=== PATIENT | female | born 2005 ===

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

== ENCOUNTER 2023-06-06 07:27 | Inpatient (IN) | payer MEDICAID ==
[2023-06-06] VITALS (42 sets, daily range): BP systolic 119–169; BP diastolic 66–102
[~2023-06-06] VITALS: Ht 160.3 cm; Wt 79.9 kg
[2023-06-06 08:39] LABS: BACTERIA,URINE MODERATE /HPF; BILIRUBIN,URINE NEGATIVE (NEGATIVE); CLARITY,URINE SL CLOUDY; COLOR,URINE YELLOW; GLUCOSE, URINE (UA) NEGATIVE (NEGATIVE); KETONES,URINE TRACE (NEGATIVE); LEUKOCYTE ESTERASE ,URINE 2+ (NEGATIVE); NITRITE,URINE NEGATIVE (NEGATIVE); PH,URINE 6.5 (5-9); PROTEIN,URINE 2+ (NEGATIVE); WBC,URINE 25-50 /HPF
[2023-06-06 08:40] LABS: AMORPHOUS SEDIMENT,UR MOD AMOR URATES /LPF
[2023-06-06] MEDS ORDERED: D5 LR 1,000 ML IV SOLN 1,000 ML IV SCH (09:15)
[2023-06-06] MEDS ORDERED: NS (IVPB) 50 ML 50 ML ONE (09:57)
[2023-06-06] MEDS ORDERED: ceFAZolin INJECTION 1,000 MG ONE (09:58)
[2023-06-06] MEDS: ceFAZolin INJECTION 1,000 MG in NS (IVPB) 50 ML 50 ML IV SCH ×2 (10:04→18:07)
[2023-06-06 10:24] LABS: BASOPHILS % (AUTO) 0 % (0-10); EOSINOPHILS # (AUTO) 0.1 10^3/uL (0.0-0.3); EOSINOPHILS % (AUTO) 2 % (0-10); HEMATOCRIT 34 % (35-52); HEMOGLOBIN 11.3 g/dL (11.5-16.0); LYMPHOCYTES # (AUTO) 2.9 10^3/uL (1.0-4.0); LYMPHOCYTES % (AUTO) 35 % (12-44); MEAN CORPUSCULAR HEMOGLOBIN 31 pg (25-34); MEAN CORPUSCULAR HGB CONC 34 g/dL (32-36); MEAN CORPUSCULAR VOLUME 93 fL (80-99); MEAN PLATELET VOLUME 11.4 fL (9.0-12.2); MONOCYTES # (AUTO) 0.8 10^3/uL (0.0-1.0); MONOCYTES % (AUTO) 9 % (0-12); NEUTROPHILS # (AUTO) 4.4 10^3/uL (1.8-7.8); NEUTROPHILS % (AUTO) 53 % (42-75); PLATELET COUNT 216 10^3/uL (130-400); WHITE BLOOD COUNT 8.3 10^3/uL (4.3-11.0)
[2023-06-06 10:41] LABS: ALBUMIN 3.4 GM/DL (3.2-4.5); BILIRUBIN,TOTAL 0.3 MG/DL (0.1-1.0); CALCIUM 9.4 MG/DL (8.5-10.1); CREATININE SERUM 0.72 MG/DL (0.60-1.30); POTASSIUM 3.8 MMOL/L (3.6-5.0); TOTAL PROTEIN 6.6 GM/DL (6.4-8.2); URIC ACID 4.2 MG/DL (2.6-7.2)
[2023-06-06] MEDS ORDERED: LACTATED RINGERS 1,000 ML 500 ML IV PRN (11:15)
[2023-06-06] MEDS ORDERED: MINERAL OIL 30 ML UDC TOP PRN (11:15)
[2023-06-06] MEDS ORDERED: LIDOCAINE 2% w/EPI 1:200,000 20 ML VIAL ONE (12:13)
[2023-06-06] MEDS ORDERED: OXYTOCIN DRIP PRE-MIX 500 ML IV ONE ×2 (12:13→23:39)
[2023-06-06] MEDS ORDERED: CATHETER FLUSH 10 ML SYR IV SCH (14:00)
[2023-06-06] MEDS: D5 LR 1,000 ML IV SOLN 1,000 ML IV SCH ×2 (14:22→20:29)
--- NOTE | 2023-06-06 15:32 | History & Physical-OB ---
OB - Chief Complaint & HPI Date/Time Date of Admission: Date of Admission: Jun 06, 2023 at 11:08 Date seen by a Provider: Jun 06, 2023 Time Seen by a Provider: 15:30 Chief Complaint/History OB-Reason for Admission/Chief: Onset of Labor Hx : 1 Hx Para: 0 Expected Date of Delivery: Jun 18, 2023 Gestational Age in Weeks: 38 Gestational Age in Days: 2 Admission Nurse Assessment Rev: Yes History of Labs GBS negative Allergies and Home Medications Allergies Coded Allergies: No Known Drug Allergies (Verified , 12/20/08) Patient Home Medication List Home Medication List Reviewed: Yes Azithromycin (Zithromax) 250 Mg Tablet, 1 TAB PO UD Prescribed by: JASE BATEMAN on 07/06/14 1354 Cephalexin (Cephalexin) 250 Mg Capsule, 250 MG PO TID Prescribed by: VERENA LOCKWOOD on 06/08/23 0743 Ferrous Sulfate (Ferrous Sulfate) 325 Mg (65 Mg Iron) Tablet, 325 MG PO DAILY Prescribed by: VERENA LOCKWOOD on 06/08/23 0743 OB - History Hx of Present Care: Yes Ultrasounds: Normal mid trimester US Obstetrical Complications: None Medical Complications: None Obstetrical History Hx : 1 Hx Para: 0 Delivery History Hx Blood Disorders: No Patient Past Medical History no chonic medical problems Social History/Family History Alcohol Use: Denies Use Recreational Drug Use: No 2nd Hand Smoke Exposure: No Immunizations Influenza Vaccine Up-to-Date: No; Not Current Hepatitis A: No Hepatitis B: No Tetanus Booster (TDap): Unknown OB - Admission Exam Physical Exam Vitals: Vital Signs 06/06/23 06/06/23 10:25 15:20 Temp 36.8 Pulse 77 Resp 20 B/P (MAP) 128/71 (90) Pulse Ox 99 O2 Delivery Room Air HEENT: Eyes non-injected Heart: Rhythm Normal Lungs: Clear Abdomen: Gravid Cervical Dilatation: 1cm (on presentation) Labs Laboratory Tests Test 06/06/23 07:55 06/06/23 09:15 Range/Units Urine Color YELLOW Urine Clarity SL CLOUDY Urine pH 6.5 5-9 Urine Specific [place] 1.020 1.016-1.022 Urine Protein 47 H 6-12 MG/DL Urine Glucose (UA) NEGATIVE NEGATIVE Urine Ketones TRACE H NEGATIVE Urine Nitrite NEGATIVE NEGATIVE Urine Bilirubin NEGATIVE NEGATIVE Urine Urobilinogen 2.0 < = 1.0 MG/DL Urine Leukocyte Esterase 2+ H NEGATIVE Urine RBC (Auto) 1+ H NEGATIVE Urine RBC 2-5 H /HPF Urine WBC 25-50 H /HPF Urine Squamous Epithelial Cells 5-10 /HPF Urine Crystals PRESENT H /LPF Urine Amorphous Sediment MOD BRANDO URATES H /LPF Urine Bacteria MODERATE H /HPF Urine Casts NONE /LPF Urine Mucus SMALL H /LPF Urine Culture Indicated YES Urine Creatinine 155 H 30-125 MG/DL Urine Protein/Creatinine Ratio 0.30 White Blood Count 8.3 4.3-11.0 10^3/uL Red Blood Count 3.61 L 3.80-5.11 10^6/uL Hemoglobin 11.3 L 11.5-16.0 g/dL Hematocrit 34 L 35-52 % Mean Corpuscular Volume 93 80-99 fL Mean Corpuscular Hemoglobin 31 25-34 pg Mean Corpuscular Hemoglobin Concent 34 32-36 g/dL Red Cell Distribution Width 12.4 10.0-14.5 % Platelet Count 216 130-400 10^3/uL Mean Platelet Volume 11.4 9.0-12.2 fL Immature Granulocyte % (Auto) 1 % Neutrophils (%) (Auto) 53 42-75 % Lymphocytes (%) (Auto) 35 12-44 % Monocytes (%) (Auto) 9 0-12 % Eosinophils (%) (Auto) 2 0-10 % Basophils (%) (Auto) 0 0-10 % Neutrophils # (Auto) 4.4 1.8-7.8 10^3/uL Lymphocytes # (Auto) 2.9 1.0-4.0 10^3/uL Monocytes # (Auto) 0.8 0.0-1.0 10^3/uL Eosinophils # (Auto) 0.1 0.0-0.3 10^3/uL Basophils # (Auto) 0.0 0.0-0.1 10^3/uL Immature Granulocyte # (Auto) 0.1 0.0-0.1 10^3/uL Sodium Level 137 135-145 MMOL/L Potassium Level 3.8 3.6-5.0 MMOL/L Chloride Level 109 H 98-107 MMOL/L Carbon Dioxide Level 22 21-32 MMOL/L Anion Gap 6 5-14 MMOL/L Blood Urea Nitrogen 8 7-18 MG/DL Creatinine 0.72 0.60-1.30 MG/DL Estimat Glomerular Filtration Rate 123 BUN/Creatinine Ratio 11 Glucose Level 76 70-105 MG/DL Uric Acid 4.2 2.6-7.2 MG/DL Calcium Level 9.4 8.5-10.1 MG/DL Corrected Calcium 9.9 8.5-10.1 MG/DL Total Bilirubin 0.3 0.1-1.0 MG/DL Aspartate Amino Transf (AST/SGOT) 18 5-34 U/L Alanine Aminotransferase (ALT/SGPT) 12 0-55 U/L Alkaline Phosphatase 173 H 40-136 U/L Lactate Dehydrogenase 172 125-220 U/L Total Protein 6.6 6.4-8.2 GM/DL Albumin 3.4 3.2-4.5 GM/DL Syphilis Total Antibody Negative Negative OB - Assessment/Plan/Diagnosis Assessment Assessment: active labor Admission Dx 1. IUP at 38w2d gestation. 2. UTI Admission Status: Inpatient Order (span 2 midnights) Reason for Inpatient Admission: Labor Plan Plan: Expectant Management VERENA LOCKWOOD MD Jun 06, 2023 15:32
[2023-06-06] MEDS ORDERED: fentaNYL 2 mcg/ml BUPIVA 0.125 100 ML ONE (18:36)
[2023-06-06] MEDS ORDERED: fentaNYL INJECTION 100 MCG/2 ML VIAL ONE (18:52)
[2023-06-06] MEDS ORDERED: BUPIVACAINE 0.25% 10 ML VIAL ONE (18:52)
[2023-06-06] MEDS ORDERED: diphenhydrAMINE INJ 50 MG/ML VIAL IV PRN (19:00)
[2023-06-06] MEDS ORDERED: NALOXONE 0.4 MG/ML 1 ML VIAL IV PRN ×2 (19:00→23:30)
[2023-06-06] MEDS ORDERED: ONDANSETRON INJECTION 4 MG/2 ML (SDV) IV PRN (19:00)
[2023-06-06] MEDS ORDERED: LACTATED RINGERS 1,000 ML 1,000 ML IV SCH (19:00)
[2023-06-06] MEDS ORDERED: fentaNYL 2 mcg/ml BUPIVA 0.125 100 ML EPI SCH (19:00)
[2023-06-06] MEDS ORDERED: OXYTOCIN DRIP PRE-MIX 500 ML IV SCH ×2 (20:30→23:30)
--- NOTE | 2023-06-06 23:16 | OB Labor & Delivery Record ---
L&D History Date of Service Date of Service: Jun 06, 2023 History Expected Date of Delivery: Jun 18, 2023 Gestational Age in Weeks: 38 Hx : 1 Hx Para: 1 Complications Events: Routine care Operative Indications (Cesarea: N/A-Vaginal Delivery Intrapartal Events: None Other Complications GBS negative. UTI L&D Stage1 Stage One Onset of Labor - Date: Jun 06, 2023 Onset of Labor - Time: 09:00 Monitors and Tracing Monitor Mode: Internal Heart Rate: 125 Monitor Accelerations: Uniform Monitor Decelerations: None Station: -2 Care Home Variability: Average (6-10) Short Term Variability: Present Presentation: Vertex Vital Signs VS - Last 72 Hours, by Label 06/06/23 06/06/23 06/06/23 06/06/23 07:52 08:03 08:25 08:35 Temp 36.9 36.9 Pulse 124 126 100 109 Resp 20 20 20 20 B/P (MAP) 131/99 (110) 131/87 (102) 131/99 Pulse Ox 98 98 98 O2 Delivery Room Air Room Air Room Air Room Air 06/06/23 06/06/23 06/06/23 06/06/23 08:55 09:20 10:00 10:25 Temp 37.3 36.7 Pulse 91 90 76 74 Resp 20 20 20 20 B/P (MAP) 133/88 (103) 134/88 (103) 160/96 (117) 137/97 (110) Pulse Ox 99 99 99 O2 Delivery Room Air Room Air Room Air Room Air 06/06/23 06/06/23 06/06/23 06/06/23 11:45 11:52 12:30 13:05 Temp 36.8 Pulse 88 83 88 99 Resp 18 18 20 20 B/P (MAP) 169/102 (124) 139/96 (110) 138/78 (98) 131/84 (100) O2 Delivery Room Air Room Air Room Air Room Air 06/06/23 06/06/23 06/06/23 06/06/23 13:30 14:30 15:20 16:05 Temp 36.6 36.8 37.0 Pulse 87 82 77 106 Resp 20 18 20 20 B/P (MAP) 140/86 (104) 148/88 (108) 128/71 (90) 145/82 (103) O2 Delivery Room Air Room Air Room Air Room Air 06/06/23 06/06/23 06/06/23 06/06/23 16:45 17:15 18:00 18:30 Temp 36.8 Pulse 114 102 89 88 Resp 20 20 20 20 B/P (MAP) 132/85 (101) 137/90 (106) 134/87 (103) 142/92 (109) O2 Delivery Room Air Room Air Room Air Room Air 06/06/23 06/06/23 06/06/23 06/06/23 19:02 19:05 19:08 19:15 Pulse 98 86 86 75 Resp 20 18 18 18 B/P (MAP) 143/92 (109) 164/84 (110) 150/81 (104) 134/84 (101) Pulse Ox 99 99 99 99 O2 Delivery Room Air Room Air Room Air Room Air 06/06/23 06/06/23 06/06/23 06/06/23 19:18 19:21 19:24 19:33 Temp 37.0 Pulse 83 92 72 83 Resp 18 18 18 18 B/P (MAP) 135/82 (99) 127/74 (91) 136/78 (97) 124/80 (95) Pulse Ox 99 99 99 99 O2 Delivery Room Air Room Air Room Air Room Air 06/06/23 06/06/23 06/06/23 06/06/23 19:42 19:50 20:08 20:17 Pulse 91 93 68 77 Resp 18 18 18 18 B/P (MAP) 138/66 (90) 138/88 (105) 135/82 (99) 127/76 (93) Pulse Ox 99 99 99 100 O2 Delivery Room Air Room Air Room Air Room Air 06/06/23 06/06/23 06/06/23 06/06/23 20:29 20:38 20:48 20:57 Pulse 92 69 64 62 Resp 18 18 18 18 B/P (MAP) 127/74 (91) 124/75 (91) 130/75 (93) 125/76 (92) Pulse Ox 100 99 99 99 O2 Delivery Room Air Room Air Room Air Room Air 06/06/23 06/06/23 06/06/23 06/06/23 21:08 21:18 21:27 21:50 Temp 36.9 Pulse 60 63 55 86 Resp 18 18 18 18 B/P (MAP) 144/79 (100) 145/88 (107) 130/79 (96) 126/78 (94) Pulse Ox 99 100 100 99 O2 Delivery Room Air Room Air Room Air Room Air 06/06/23 22:06 Pulse 86 Resp 18 B/P (MAP) 156/76 (102) Pulse Ox 100 O2 Delivery Room Air Signs of Distress by FHT Signs of Distress no Rupture of Membranes Spontaneous Ruture of Membrane: No Amniotic Membrane Rupture Time: 1536 Amniotic Membrane Fluid Desc.: Clear Induction/Anesthesia Epidural Cath Placement - Time: 5 L&D Stage2 Stage Two Stage II Date: Jun 06, 2023 Stage II Time: 22:42 Monitors and Tracing Monitor Mode: Internal Heart Rate: 125 Monitor Accelerations: Uniform Monitor Decelerations: None Care Home Variability: Average (6-10) Short Term Variability: Present Position: Left Occiput Anterior Presentation: Vertex Signs of Distress by FHT Signs of Distress no Cord Descript/Complications Cord Vessel Description: 3 Vessels Delivery Type Delivery Method: Spontaneous Vaginal Anterior Shoulder: Left Episiotomy/Perineal Laceration Laceraction(s)/Extensions: No Episiotomy Description: Periurethral Extnsion/lac (R), 1st degree (very minor) Sutures Used: Vicryl Condition of Delivery 1 minute Comment: 8 5 minute Comment: 9 Condition of Condition of : Living Exam: No Observed Abnormalities Resuscitation Resuscitation: N/A - Spontaneous Resp L&D Stage3 Stage Three Stage III Date: Jun 06, 2023 Stage III Time: 22:46 Pictocin Pitocin Administration mu/min: 6 Pitocin ml/hr: 6 Placenta Delivery Placenta Delivery: Spontaneous Delivery Summary Summary Estimated blood loss (mL): 350 Condition of Delivery Examined: Cervix Examined Post Hemorrhage: No Intervention Required uterine massage VERENA LOCKWOOD MD Jun 06, 2023 23:15
[2023-06-06] MEDS ORDERED: MEASLES, MUMPS, RUBELLA VACCINE (MMR) SQ ONE (23:30)
[2023-06-06] MEDS ORDERED: Tetanus/Diphtheria/Pertussis (Acell) ADULT Vaccine 0.5 ML IM ONE (23:30)
[2023-06-06] MEDS ORDERED: WITCH HAZEL(TUCKS) 40 EA JAR TOP PRN (23:30)
[2023-06-06] MEDS ORDERED: BENZOCAINE/MENTHOL (DERMOPLAST) 56 ML CAN TP PRN (23:30)
[2023-06-07] VITALS (7 sets, daily range): BP systolic 122–148; BP diastolic 63–93
[2023-06-07] MEDS: IBUPROFEN 600 MG TABLET PO SCH ×4 (00:09→17:50)
[2023-06-07] MEDS: ACETAMINOPHEN 500 MG TABLET PO SCH ×4 (00:09→17:50)
[2023-06-07 05:38] LABS: BASOPHILS % (AUTO) 0 % (0-10); EOSINOPHILS # (AUTO) 0.1 10^3/uL (0.0-0.3); EOSINOPHILS % (AUTO) 1 % (0-10); HEMATOCRIT 24 % (35-52); HEMOGLOBIN 7.9 g/dL (11.5-16.0); LYMPHOCYTES # (AUTO) 2.2 10^3/uL (1.0-4.0); LYMPHOCYTES % (AUTO) 20 % (12-44); MEAN CORPUSCULAR HEMOGLOBIN 31 pg (25-34); MEAN CORPUSCULAR HGB CONC 33 g/dL (32-36); MEAN CORPUSCULAR VOLUME 93 fL (80-99); MEAN PLATELET VOLUME 11.1 fL (9.0-12.2); MONOCYTES # (AUTO) 1.4 10^3/uL (0.0-1.0); MONOCYTES % (AUTO) 12 % (0-12); NEUTROPHILS # (AUTO) 7.5 10^3/uL (1.8-7.8); NEUTROPHILS % (AUTO) 67 % (42-75); PLATELET COUNT 153 10^3/uL (130-400); WHITE BLOOD COUNT 11.3 10^3/uL (4.3-11.0)
[2023-06-07] MEDS: CATHETER FLUSH 10 ML SYR IV SCH ×3 (06:18→21:18)
--- NOTE | 2023-06-07 07:32 | Progress Note ---
Subjective Subjective/Events-last exam mother voices no complaints today no dizziness. She has had urine output already since giving Objective Exam Last Set of Vital Signs Vital Signs Date Time Temp Pulse Resp B/P (MAP) Pulse Ox O2 Delivery O2 Flow Rate FiO2 06/07/23 05:31 36.8 101 18 126/80 (95) 99 Room Air Capillary Refill : Less Than 3 Seconds I&O Intake and Output 06/07/23 00:00 Intake Total 2100 ml Balance 2100 ml IV Total 2100 ml Blood Loss Quantification Method 350 ml Daily Weight Change No General: Alert, Oriented X3 Lungs: Clear to Auscultation Abdomen: Soft (With uterus firm) Results/Procedures Lab Laboratory Tests 06/06/23 07:55: Urine Color YELLOW, Urine Clarity SL CLOUDY, Urine pH 6.5, Urine Specific [place] 1.020, Urine Protein 47H, Urine Glucose (UA) NEGATIVE, Urine Ketones TRACEH, Urine Nitrite NEGATIVE, Urine Bilirubin NEGATIVE, Urine Urobilinogen 2.0, Urine Leukocyte Esterase 2+H, Urine RBC (Auto) 1+H, Urine RBC 2-5H, Urine WBC 25-50H, Urine Squamous Epithelial Cells 5-10, Urine Crystals PRESENTH, Urine Amorphous Sediment MOD BRANDO URATESH, Urine Bacteria MODERATEH, Urine Casts NONE, Urine Mucus SMALLH, Urine Culture Indicated YES, Urine Creatinine 155H, Urine Protein/Creatinine Ratio 0.30 06/06/23 09:15: White Blood Count 8.3, Red Blood Count 3.61L, Hemoglobin 11.3L, Hematocrit 34L, Mean Corpuscular Volume 93, Mean Corpuscular Hemoglobin 31, Mean Corpuscular Hemoglobin Concent 34, Red Cell Distribution Width 12.4, Platelet Count 216, Mean Platelet Volume 11.4, Immature Granulocyte % (Auto) 1, Neutrophils (%) (Auto) 53, Lymphocytes (%) (Auto) 35, Monocytes (%) (Auto) 9, Eosinophils (%) (Auto) 2, Basophils (%) (Auto) 0, Neutrophils # (Auto) 4.4, Lymphocytes # (Auto) 2.9, Monocytes # (Auto) 0.8, Eosinophils # (Auto) 0.1, Basophils # (Auto) 0.0, Immature Granulocyte # (Auto) 0.1, Sodium Level 137, Potassium Level 3.8, Chloride Level 109H, Carbon Dioxide Level 22, Anion Gap 6, Blood Urea Nitrogen 8, Creatinine 0.72, Estimat Glomerular Filtration Rate 123, BUN/Creatinine Ratio 11, Glucose Level 76, Uric Acid 4.2, Calcium Level 9.4, Corrected Calcium 9.9, Total Bilirubin 0.3, Aspartate Amino Transf (AST/SGOT) 18, Alanine Aminotransferase (ALT/SGPT) 12, Alkaline Phosphatase 173H, Lactate Dehydrogenase 172, Total Protein 6.6, Albumin 3.4, Syphilis Total Antibody Negative 06/07/23 05:26: White Blood Count 11.3H, Red Blood Count 2.57L, Hemoglobin 7.9#L, Hematocrit 24L , Mean Corpuscular Volume 93, Mean Corpuscular Hemoglobin 31, Mean Corpuscular Hemoglobin Concent 33, Red Cell Distribution Width 12.4, Platelet Count 153, Mean Platelet Volume 11.1, Immature Granulocyte % (Auto) 0, Neutrophils (%) (Auto) 67, Lymphocytes (%) (Auto) 20, Monocytes (%) (Auto) 12, Eosinophils (%) (Auto) 1, Basophils (%) (Auto) 0, Neutrophils # (Auto) 7.5, Lymphocytes # (Auto) 2.2, Monocytes # (Auto) 1.4H, Eosinophils # (Auto) 0.1, Basophils # (Auto) 0.0, Immature Granulocyte # (Auto) 0.0 Assessment/Plan Assessment/Plan Admission Dx 1. Intrauterine at term 38 weeks 2 days gestation 2. UTI Admission Status: Inpatient Order (span 2 midnights) Reason for Inpatient Admission: Labor and delivery Assessment & Plan 1. Intrauterine at term 38 weeks 2 days gestation -status post spontaneous vaginal delivery -Routine care -Home in the morning of June 08, 2023 2. UTI -currently on cephalexin 250 mg 3 times a day 3. anemiaStable -Patient is not actively bleeding currently. VERENA LOCKWOOD MD Jun 07, 2023 07:32
[2023-06-07] MEDS: CEPHALEXIN 250 MG CAPSULE PO SCH ×3 (08:54→20:52)
[2023-06-07] MEDS: DOCUSATE SODIUM 100 MG CAPSULE PO SCH ×2 (08:54→20:52)
--- NOTE | 2023-06-07 11:05 | Anesthesia-Regional Post-Op ---
Regional Patient Condition Mental Status: Alert, Oriented x3 Circulation: Same as Pre-Op Headache: Absent Sensation: Full Recovery Motor Block: Absent Post Op Complications Complications None Follow Up Care/Instructions Patient Instructions None needed. Anesthesia/Patient Condition Patient is doing well, no complaints, stable vital signs, no apparent adverse anesthesia problems. No complications reported per nursing. SAMREEN FERNANDEZ CRNA Jun 07, 2023 11:05
[2023-06-08] MEDS: IBUPROFEN 600 MG TABLET PO SCH ×2 (00:03→05:41)
[2023-06-08] MEDS: ACETAMINOPHEN 500 MG TABLET PO SCH ×2 (00:04→05:41)
[2023-06-08 02:00] VITALS: BP 137/75
[2023-06-08] MEDS: CATHETER FLUSH 10 ML SYR IV SCH (05:16)
[2023-06-08] MEDS ORDERED: FERR325T18 PO (07:43)
[2023-06-08] MEDS ORDERED: CEPH250C PO (07:43)
--- NOTE | 2023-06-08 07:45 | Discharge Inst-Women's Service ---
Discharge Inst-Women's Serv Depart Medication/Instructions New, Converted or Re-Newed RX: Transmitted to Pharmacy ([facility] on [address]) Instructions May take [id number] ibuprofen 2 or 3 tablets every 6 hours if needed for cramps Problems Reviewed?: Yes Consults/Follow Up Additional Follow Up: Yes (Dr. Lockwood in 6 weeks at [facility]) Activity Activity: Activity as Tolerated Driving Instructions: No Driving for 1 Week Nothing Inside Vagina: No Stark (For 6 weeks) Diet Discharge Diet: Regular Diet Return to The Hospital For: As below Symptoms to Report to : Swelling Increased, Bleeding Excessive, Fever Over 101 Degrees F, Vaginal Discharge Foul For Any Problems or Questions: Contact Your Physician VERENA LOCKWOOD MD Jun 08, 2023 07:45
--- NOTE | 2023-06-08 07:50 | Discharge Summary ---
Diagnosis/Chief Complaint Date of Admission Jun 06, 2023 at 11:08 Date of Discharge June 08, 2023 Admission Diagnosis Admission Diagnosis 1. Intrauterine at 38 weeks 2. Urinary tract infection Discharge Diagnosis 1. Intrauterine at 38 weeks 2. Urinary tract infection 3. Anemia following deliveryacute blood loss but now stable Chief Complaint/HPI Chief Complaint/HPI 17-year-old 1 now term 1 L1 who initially presented to labor and delivery during the late afternoon of June 06, 2023 with lower abdominal discomfort. She was ultimately found to be in labor as evident by cervical c hange and contractions. Her urine however did show significant bacteria evident for UTI. Her membranes were intact upon presentation and her group B strep status was negative. Discharge Summary-OBS Procedures 1. Epidural per anesthesia 2. Spontaneous vaginal delivery 3. Repair of minor perineal laceration as well as right-sided periurethral t ear Discharge Physical Examination Allergies: Coded Allergies: No Known Drug Allergies (Verified , 12/20/08) Vitals & I&Os Vital Sign - Last 12Hours Date Time Temp Pulse Resp B/P (MAP) Pulse Ox O2 Delivery O2 Flow Rate FiO2 06/08/23 02:00 36.6 71 16 137/75 (95) 97 Room Air General Appearance: No Acute Distress Respiratory: Clear to Auscultation Cardiovascular: Regular Rate Abdominal: Soft (With uterus firm) Neuro: Normal Speech Psych/Mental Status: Mental Status NL Hospital Course Was the Problem List Reviewed?: Yes following delivery she underwent labor course on June 06, 2023. Ultimately she received epidural and tolerated the remainder of labor well. She delivered during the evening of June 06 a term viable female. Delivery was accomplished over a midline episiotomy with a minor perineal laceration and right-sided periurethral tear. See labor and delivery note for full details. Following delivery she underwent routine care orders. She was noted to have a hemoglobin in the morning of June 07 of 7.9 and this was compared to admission of 11.3. She was without any dizziness and she was ambulatory with out complications. She denied any additional vaginal bleeding. She was started on iron sulfate daily. She was eager for dismissal in the morning of June 08, 2023. She was tolerating regular diet and had no complaints. She will follow up with myself in 6 weeks at [facility]. Labs Microbiology 06/06/23 Urine Culture - Preliminary, Resulted Slight Growth Present Discharge Instructions to patient/family Please see electronic discharge instructions given to patient. Discharge Medications Reviewed and agree with Discharge Medication list on patient's Discharge Instruction sheet VERENA LOCKWOOD MD Jun 08, 2023 07:50
[2023-06-08 08:00] VITALS: BP 119/82
[2023-06-08] MEDS: DOCUSATE SODIUM 100 MG CAPSULE PO SCH (08:13)
[2023-06-08] MEDS: CEPHALEXIN 250 MG CAPSULE PO SCH (08:14)
== END 2023-06-08 10:55 | disposition home or self-care (01) | DRG 806 ==
LOC: WSo 07:27 → LDRP 07:27 → WSo 11:08 → LDRP 11:08
PROVIDERS: ADMIT Family Medicine; ATTEND Family Medicine
PROC: 10E0XZZ Delivery of Products of Conception, External Approach (ICD-10-PCS; principal; 2023-06-06)
PROC: 0HQ9XZZ Repair Perineum Skin, External Approach (ICD-10-PCS; 2023-06-06)
DX: O23.43 Unspecified infection of urinary tract in pregnancy, third trimester (principal); D62 Acute posthemorrhagic anemia; Z37.0 Single live birth; Z3A.38 38 weeks gestation of pregnancy; O70.0 First degree perineal laceration during delivery; O90.81 Anemia of the puerperium
CPT/HCPCS: 36415; 80053; 81000; 82570; 83615; 84156; 84550; 85025; 86780; 86850; 86900; 86901; 87088; 99213